=== PATIENT | male | born 1950 | race Hispanic/Latino ===

== ENCOUNTER → 2024-09-16 | Outpatient (CLI) | payer OTHER ==
[2024-09-16] MEDS: REGADENOSON 0.4 MG/5 ML PF SYG IVP ONE (12:19)
--- NOTE | 2024-09-16 17:58 | HMCSR ---
APPROVED REPORT Height: 5 ft 9in Weight: 217 lbs TEST INDICATIONS i47.1 SUPRAVENTRICULAR TACHYCARDIA; I47.2 VENTRICULAR TACHY, The imaging protocol used to acquire images was Rest Tc-99m/stress Tc-99m 1 day Consent: The procedure was explained and understood by the patient. Informerd consent was witnessed Savanna Eli RN First, low dose rest was performed then high dose stress. RESTING DATA: The resting ekg shows: NSR Rest SPECT myocardial perfusion imaging was performed in supine position 67 minutes following the int ravenous injection of 11.0 mCi of Tc-99 Sestamibi. Time of rest injection: 08:00: Date: 09/16/2024 Time of rest imagin:07: Date: 09/16/2024 PHARMACOLOGIC STRESS: Pharmacologic stress test was performed by injecting regadenoson 0.4 mg IV push followed by the intra venous injection of 32.0 mCi of Tc-99 Sestamibi. Time of stress injection: 09:35: Date: 09/16/2024 Time of stress imagin:49: Date: 09/16/2024 Heart Rate at time of stress injection: 68 bpm. Gated Stress SPECT was performed 74 minutes after stress injection. The images were gated to evaluate regional wall motion and calculate left ventricular ejection fracti on. STRESS DETAILS Reason for Termination: Infusion complete Stress Symptoms: Dyspnea Max HR Achieved: 89 bpm % of APMHR Achieved: 61 Max Blood Pressure: 131/88 mmHg Stress ECG: NSR Study quality was good. Lung uptake was Normal. Artifact: No artifact IMPRESSION Abnormal pharmacologic nuclear stress test. Conclusion Small reversible apical defect. LVEF 60%.
== END | disposition home or self-care (01) ==
LOC: SHCH 07:47
PROVIDERS: ATTEND Internal Medicine Cardiovascular Disease
DX: R94.39 Abnormal result of other cardiovascular function study (principal); I49.3 Ventricular premature depolarization; I47.20 Ventricular tachycardia, unspecified; I47.10 Supraventricular tachycardia, unspecified
CPT/HCPCS: 78452; 93017; J2785; A9500 ×2